=== PATIENT | male | born 1950 | race Caucasian/White ===

== ENCOUNTER 2017-04-18 16:20 | Emergency (ER) | payer MEDICARE, OTHER ==
[2017-04-18] MEDS ORDERED: Sodium Chloride 0.9% 10 ML Syringe FLUSH PRN (16:37)
[2017-04-18] MEDS ORDERED: Lactated Ringers 1,000 ML IV ONE (16:38)
[2017-04-18 17:07] LABS: CHLORIDE,CL 105 mmol/L (98-107); SODIUM,NA 140 mmol/L (136-145)
--- NOTE | 2017-04-18 19:00 | EDM.PDOC ---
ED HPI GENERAL MEDICAL PROBLEM - General Chief Complaint: Gastrointestinal Problem Stated Complaint: URINATION/CONSTIPATION ISSUES Time Seen by Provider: 04/18/17 16:21 Source of Information: Reports: Patient, Family, RN, RN Notes Reviewed History Limitations: Reports: No Limitations - History of Present Illness INITIAL COMMENTS - FREE TEXT/NARRATIVE: Patient presents to the ED at [facility] complaining of lower abdominal pain and pelvic pressure. The patient states that his symptoms have been occurring the last 3-4 days. The patient has been taking MiraLAX and milk of magnesia without any relief at home. The patient states that he is unable to fully void and feels like he is retaining urine. The patient denies any fevers or chills. The patient denies any nausea vomiting or diarrhea. The appetite has been good. The patient states he has been not drinking very much water. Otherwise no other concerns. Onset: Gradual Onset Date: 04/08/17 - Related Data Allergies Allergy/AdvReac Type Severity Reaction Status Date / Time codeine Allergy Tachycardia Verified 04/18/17 16:45 Home Meds: Home Meds Celecoxib [Celebrex] 04/11/13 [History] FLUoxetine HCl [Fluoxetine HCl] 04/11/13 [History] Fluticasone/Salmeterol [Advair 500-50 Diskus] 04/11/13 [History] Omeprazole [Omeprazole] 04/11/13 [History] Simvastatin [Simvastatin] 04/11/13 [History] Tamsulosin HCl [Tamsulosin HCl] 04/11/13 [History] Past Medical History Cardiovascular History: Reports: High Cholesterol Social & Family History - Tobacco Use Smoking Status *Q: Unknown Ever Smoked Second Hand Smoke Exposure: No - Alcohol Use Days Per Week of Alcohol Use: 0 - Recreational Drug Use Recreational Drug Use: No ED ROS GENERAL - Review of Systems Review Of Systems: See Below Constitutional: Denies: Fever, Chills, Weakness Respiratory: Denies: Shortness of Breath, Cough Cardiovascular: Denies: Chest Pain, Palpitations GI/Abdominal: Reports: Abdominal Pain. Denies: Diarrhea, Nausea, Vomiting : Reports: Urinary Retention. Denies: Discharge, Dysuria, Flank Pain Skin: Reports: No Symptoms Neurological: Reports: No Symptoms ED EXAM, GI/ABD - Physical Exam Exam: See Below Exam Limited By: No Limitations General Appearance: Alert, No Apparent Distress Respiratory/Chest: No Respiratory Distress, Lungs Clear, Normal Breath Sounds Cardiovascular: Normal Peripheral Pulses, Regular Rate, Rhythm GI/Abdominal Exam: Normal Bowel Sounds, Soft, Tender (lower abdominal) Neurological: Alert, Oriented Skin Exam: Warm, Dry, Intact, Normal Color, No Rash Course - Vital Signs Last Recorded V/S: Last Vital Signs Temp 36.5 C 04/18/17 16:25 Pulse 69 04/18/17 16:25 Resp 18 04/18/17 16:25 BP 133/75 04/18/17 16:25 Pulse Ox 94 L 04/18/17 16:25 - Orders/Labs/Meds Orders: Active Orders 24 hr Category Date Time Status Abdomen 2V AP Flat Upright [CR] Stat Exams 04/18/17 17:23 Taken PSA-EIA [REF] Stat Lab 04/18/17 16:45 Received Sodium Chloride 0.9% [Saline Flush] Med 04/18/17 16:37 Active 10 ml FLUSH ASDIRECTED PRN Peripheral IV Insertion Adult [OM.PC] Routine Oth 04/18/17 16:37 Ordered Medication Orders Sodium Chloride (Saline Flush) 10 ml FLUSH ASDIRECTED PRN PRN Reason: Keep Vein Open Labs: Laboratory Tests 04/18/17 04/18/17 04/18/17 Range/Units 16:45 16:45 17:10 WBC 5.7 (4.0-10.0) x10^3/uL RBC 4.70 (4.5-6.0) x10^6/uL Hgb 15.1 D (14.0-18.0) g/dL Hct 42.9 (40.0-52.0) % MCV 91.3 D (78.0-93.0) fL MCH 32.1 H (26.0-32.0) pg MCHC 35.2 (32.0-36.0) g/dL RDW Coeff of Mary 13.1 (10.0-15.0) % Plt Count 177 (130-400) x10^3/uL Neut % (Auto) 66.0 (50.0-80.0) % Lymph % (Auto) 22.5 L (25.0-50.0) % Esmeralda % (Auto) 9.0 (2.0-11.0) % Eos % (Auto) 2.3 (0.0-4.0) % Baso % (Auto) 0.2 (0.2-1.2) % Sodium 140 (136-145) mmol/L Potassium 3.8 (3.5-5.1) mmol/L Chloride 105 (98-107) mmol/L Carbon Dioxide 24 (21-32) mmol/L BUN 17 (7-18) mg/dL Creatinine 1.2 (0.70-1.30) mg/dL Est Cr Clr Drug Dosing TNP Estimated GFR (MDRD) > 60 Glucose 116 H (74-106) mg/dL Calcium 8.3 L (8.5-10.1) mg/dL Urine Color Yellow (YELLOW) Urine Appearance Cloudy H (CLEAR) Urine pH 7.5 (5.0-8.0) Ur Specific Lykens 1.015 Urine Protein Negative (NEGATIVE) mg/dL Urine Glucose (UA) Negative (NEGATIVE) mg/dL Urine Ketones Negative (NEGATIVE) mg/dL Urine Occult Blood Negative (NEGATIVE) Urine Nitrite Negative (NEGATIVE) Urine Bilirubin Negative (NEGATIVE) Urine Urobilinogen 0.2 (0.2) EU/dL Ur Leukocyte Esterase Negative (NEGATIVE) Urine RBC 0-5 (NOT SEEN) /HPF Urine WBC 0-5 (NOT SEEN) /HPF Ur Squamous Epith Cells Not seen (NEGATIVE) /HPF Amorphous Sediment Many Urine Bacteria Few H (NEGATIVE) /HPF Urine Mucus Not seen (NEGATIVE) /LPF Meds: Medications Generic Name Dose Route Start Last Admin Trade Name Freq PRN Reason Stop Dose Admin Sodium Chloride 10 ml 04/18/17 16:37 Saline Flush FLUSH ASDIRECTED PRN Keep Vein Open Discontinued Medications Generic Name Dose Route Start Last Admin Trade Name Freq PRN Reason Stop Dose Admin Lactated Ringer's 1,000 mls @ 999 mls/hr 04/18/17 16:38 04/18/17 17:26 Ringers, Lactated IV 04/18/17 17:38 999 mls/hr ONETIME ONE Administration - Radiology Interpretation Free Text/Narrative:: Abd flat plate and Upright 2V: No acute findings in the abdomen; large colonic stool burden - see scanned report in EMR Departure - Departure Time of Disposition: 18:58 Disposition: Home, Self-Care 01 Condition: Good Clinical Impression: Constipation Qualifiers: Constipation type: unspecified constipation type Qualified Code(s): K59.00 - Constipation, unspecified - Discharge Information Instructions: Constipation, Adult, [id number] Referrals: PCP,Not In Area [Primary Care Provider] - Additional Instructions: 1. Stay well hydrated and rest 2. Drink LOTS of water 3. Continue taking MiraLax and MOM daily until having BM's daily 4. May try a stool softener 5. See your Primary as symptoms warrant 6. Call with any questions/concerns - Problem List Review Problem List Initiated/Reviewed/Updated: Yes - My Orders Last 24 Hours: My Active Orders 04/18/17 16:37 Sodium Chloride 0.9% [Saline Flush] 10 ml FLUSH ASDIRECTED PRN Peripheral IV Insertion Adult [OM.PC] Routine 04/18/17 16:45 PSA-EIA [REF] Stat 04/18/17 17:23 Abdomen 2V AP Flat Upright [CR] Stat - Assessment/Plan Last 24 Hours: My Active Orders 04/18/17 16:37 Sodium Chloride 0.9% [Saline Flush] 10 ml FLUSH ASDIRECTED PRN Peripheral IV Insertion Adult [OM.PC] Routine 04/18/17 16:45 PSA-EIA [REF] Stat 04/18/17 17:23 Abdomen 2V AP Flat Upright [CR] Stat
--- NOTE | 2017-04-20 16:40 | PCM.SN ---
- Free Text/Narrative Note: Patient called to relay elevated PSA level that came back today. Message left for him to call the ER.
--- NOTE | 2017-04-23 08:41 | LETTER ---
04/21/2017 RE: ARASH LASHAY DIAZ : 1950 Dear Mr. Diaz: When you were seen in the emergency room on 04/18/2017 by RANJIT Combs, he ordered a prostate specific antigen (PSA test) which is elevated at 8.4. There are numerous potential causes for elevated PSA. This is not an emergency but you should contact your primary care provider and follow up in the clinic for this. If you have any questions, please contact the emergency room at . Sincerely,
== END 2017-04-18 19:06 | disposition home or self-care (01) ==
LOC: VM.ED 16:20
DX: K59.00 Constipation, unspecified (principal); E78.00 Pure hypercholesterolemia, unspecified; Z88.5 Allergy status to narcotic agent
CPT/HCPCS: 36415; 74019; 80048; 81001; 84153; 85025; 96360; 99283; 99284; J7120

== ENCOUNTER 2019-10-07 11:42 | Emergency (ER) | payer MEDICARE, OTHER ==
--- NOTE | 2019-10-07 12:16 | EDM.PDOC ---
ED HPI GENERAL MEDICAL PROBLEM - General Stated Complaint: DIZZY SOB Time Seen by Provider: 10/07/19 11:50 Source of Information: Reports: Patient History Limitations: Reports: No Limitations - History of Present Illness INITIAL COMMENTS - FREE TEXT/NARRATIVE: Patient comes into the emergency department with complaints of dizziness. Patient states that he has had intermittent dizziness for approximately 2 weeks now. Patient did have a medication increase ropinirol in the clinic setting he had noticed shortly after that that he has become dizzy and light headed after excess amount of exercise or work outdoors. He is also noticed that with increased amount of heat he becomes lightheaded and dizzy easier. Patient states that he is not an avid water drinker as well and states that he may have 1 to 2 glasses of water during the day. He is noted to be outside for greater than 8 to 10 hours a day in the heat has been 80 to 90s the last 2 weeks. Patient states that he has had his take his blood pressure on a couple occurrences when he is dizzy and lightheaded and is noted to be systolically in the 80s. If he sits for a few minutes and takes a few sips of water his then re-takes the blood pressure and it is noted to be back up in the 100 systolically. Patient denies any active chest pain, shortness of breath, dizziness, lightheadedness, blurred vision, headache, GI upset, peripheral edema, or loss of bowel or bladder. States that he has not passed out or fallen due to these episodes he ends up finding a location and sitting down until the dizziness dissipates. He states that the episodes only last a few minutes if he goes and sits down right away. Currently he is experiencing no concerns or complaints. During these episodes the patient denies having any chest pain or breath. Onset: Gradual Quality: Reports: Other Severity: Mild Improves with: Reports: Other (sitting down, getting out of the heat, drinking water) Worsens with: Reports: None Associated Symptoms: Reports: No Other Symptoms - Related Data Allergies Allergy/AdvReac Type Severity Reaction Status Date / Time codeine Allergy Tachycardia Verified 04/18/17 16:45 Home Meds: Home Meds Celecoxib [Celebrex] 04/11/13 [History] FLUoxetine HCl [Fluoxetine HCl] 04/11/13 [History] Fluticasone Propion/Salmeterol [Advair 500-50 Diskus] 04/11/13 [History] Omeprazole 04/11/13 [History] Simvastatin 04/11/13 [History] Tamsulosin HCl 04/11/13 [History] Past Medical History Cardiovascular History: Reports: High Cholesterol ED ROS GENERAL - Review of Systems Review Of Systems: See Below Constitutional: Reports: No Symptoms HEENT: Reports: No Symptoms Respiratory: Reports: No Symptoms Cardiovascular: Reports: No Symptoms Endocrine: Reports: No Symptoms GI/Abdominal: Reports: No Symptoms : Reports: No Symptoms Musculoskeletal: Reports: No Symptoms Skin: Reports: No Symptoms Neurological: Reports: No Symptoms Psychiatric: Reports: No Symptoms Hematologic/Lymphatic: Reports: No Symptoms Immunologic: Reports: No Symptoms ED EXAM, GENERAL - Physical Exam Exam: See Below Exam Limited By: No Limitations General Appearance: Alert, WD/WN, No Apparent Distress Head: Atraumatic, Other Neck: Normal Inspection, Supple, Non-Tender, Full Range of Motion Respiratory/Chest: No Respiratory Distress, Lungs Clear, Normal Breath Sounds, No Accessory Muscle Use, Chest Non-Tender Cardiovascular: Normal Peripheral Pulses, Regular Rate, Rhythm, No Edema, No JVD GI/Abdominal: Normal Bowel Sounds, Soft, Non-Tender, No Distention Back Exam: Normal Inspection, Full Range of Motion Extremities: Normal Inspection, Normal Range of Motion, Non-Tender, No Pedal Edema, Normal Capillary Refill Neurological: Alert, Oriented, CN II-XII Intact, Normal Gait Psychiatric: Normal Affect, Normal Mood Skin Exam: Warm, Dry, Normal Color, No Rash Course - Orders/Labs/Meds Orders: Active Orders 24 hr Category Date Time Status EKG Documentation Completion [RC] STAT Care 10/07/19 12:06 Active Chest 1V Frontal [CR] Stat Exams 10/07/19 12:06 Ordered Labs: Laboratory Tests 10/07/19 10/07/19 Range/Units 12:15 12:15 WBC 5.6 (4.0-10.0) x10^3/uL RBC 4.34 L (4.5-6.0) x10^6/uL Hgb 14.0 (14.0-18.0) g/dL Hct 40.8 (40.0-52.0) % MCV 94.0 H (78.0-93.0) fL MCH 32.3 H (26.0-32.0) pg MCHC 34.3 (32.0-36.0) g/dL RDW Coeff of Mary 13.2 (10.0-15.0) % Plt Count 141 (130-400) x10^3/uL Neut % (Auto) 69.2 (50.0-80.0) % Lymph % (Auto) 15.5 L (25.0-50.0) % Larue % (Auto) 12.6 H (2.0-11.0) % Eos % (Auto) 2.3 (0.0-4.0) % Baso % (Auto) 0.4 (0.2-1.2) % Sodium 139 (136-145) mmol/L Potassium 4.5 (3.5-5.1) mmol/L Chloride 106 (98-107) mmol/L Carbon Dioxide 24 (21-32) mmol/L Anion Gap 13.5 (10-20) mmol/L BUN 24 H (7-18) mg/dL Creatinine 1.2 (0.70-1.30) mg/dL Est Cr Clr Drug Dosing TNP Estimated GFR (MDRD) 60 Glucose 100 (74-106) mg/dL Calcium 8.4 L (8.5-10.1) mg/dL Corrected Calcium 8.88 (8.5-10.1) mg/dL Total Bilirubin 0.5 (0.2-1.0) mg/dL AST 13 L (15-37) U/L ALT 13 L (16-63) U/L Alkaline Phosphatase 59 (46-116) U/L Troponin I < 0.017 (<=0.056) ng/mL NT-Pro-B Natriuret Pep 306 H (<=125) pg/mL Total Protein 6.5 (6.4-8.2) g/dL Albumin 3.4 (3.4-5.0) g/dL Globulin 3.1 Albumin/Globulin Ratio 1.10 Departure - Departure Time of Disposition: 13:32 Disposition: Home, Self-Care 01 Condition: Good Clinical Impression: Orthostatic hypotension after exercise, Orthostatic hypotension, Lightheadedness - Discharge Information *PRESCRIPTION DRUG MONITORING PROGRAM REVIEWED*: Not Applicable *COPY OF PRESCRIPTION DRUG MONITORING REPORT IN PATIENT JANIYA: Not Applicable Instructions: Orthostatic Hypotension, Near-Syncope, [id number], Dizziness, [id number] Additional Instructions: . rest 2. increase your water intake 3. Continue all at home medications 4. Activity and diet as tolerated 5. Can take over the counter Tylenol or ibuprofen for any pain or discomfort 6. Follow up with PCP if symptoms continue, return, or progress 7. Call with any questions or concerns - My Orders Last 24 Hours: My Active Orders 10/07/19 12:06 EKG Documentation Completion [RC] STAT Chest 1V Frontal [CR] Stat - Assessment/Plan Last 24 Hours: My Active Orders 10/07/19 12:06 EKG Documentation Completion [RC] STAT Chest 1V Frontal [CR] Stat Assessment:: 1. dizzy Plan: 1. Labs completed in the ER. Results reviewed with the patient 2. EKG was completed in ER. Results reviewed with the patient 3. Patient and nursing staff was updated regarding the plan of care 4. Education provided the patient regarding activity, diet, rest, [id number] medication modalities, and follow-up care was provided 5. Patient and family are agreeable to the above plan of care 6. All questions and concerns were addressed with the patient and family prior to discharge
[2019-10-07 12:48] LABS: CHLORIDE,CL 106 mmol/L (98-107); SODIUM,NA 139 mmol/L (136-145)
[2019-10-07 12:49] LABS: ANION GAP 13.5 mmol/L (10-20)
== END 2019-10-07 13:30 | disposition home or self-care (01) ==
LOC: VM.ED 11:42
DX: I95.1 Orthostatic hypotension (principal); E78.00 Pure hypercholesterolemia, unspecified; Z88.5 Allergy status to narcotic agent
CPT/HCPCS: 36415; 80053; 83880; 84484; 85025; 99284-25; 99284-GF

== ENCOUNTER 2023-03-11 12:13 | Day surgery (SDC) | payer MEDICARE, OTHER ==
[2023-03-11] MEDS: Lactated Ringers 1,000 ML IV SCH (12:44)
[2023-03-11] MEDS ORDERED: Propofol 200 MG/20 ML SDV ONE (13:36)
[2023-03-11] MEDS ORDERED: Midazolam 1 MG/ML 2 ML SDV ONE (13:37)
[2023-03-11] MEDS ORDERED: fentaNYL 100 MCG/2 ML SDV ONE (13:37)
[2023-03-11] MEDS ORDERED: Lidocaine 4% 5 ML Amp ONE (13:38)
== END 2023-03-11 15:13 | disposition home or self-care (01) ==
LOC: VM.SDS 12:13
PROVIDERS: ATTEND Family Medicine
DX: K29.50 Unspecified chronic gastritis without bleeding (principal); K29.60 Other gastritis without bleeding; K22.70 Barrett's esophagus without dysplasia; K44.9 Diaphragmatic hernia without obstruction or gangrene; G20.A1 Parkinson's disease without dyskinesia, without mention of fluctuations; F33.1 Major depressive disorder, recurrent, moderate; I48.0 Paroxysmal atrial fibrillation; I25.10 Atherosclerotic heart disease of native coronary artery without angina pectoris; I95.1 Orthostatic hypotension; Z79.82 Long term (current) use of aspirin; Z79.899 Other long term (current) drug therapy; Z88.5 Allergy status to narcotic agent
CPT/HCPCS: 00731; 88305; 88342; J2250; J2704; J3010; J3490; J7120

== ENCOUNTER 2024-02-03 11:47 | Day surgery (SDC) | payer MEDICARE, OTHER ==
[2024-02-03] MEDS: Lactated Ringers 1,000 ML IV SCH (12:00)
[2024-02-03] MEDS ORDERED: Propofol 200 MG/20 ML SDV ONE (12:52)
[2024-02-03] MEDS ORDERED: fentaNYL 100 MCG/2 ML SDV ONE (12:52)
[2024-02-03 13:56] VITALS: BP 112/72; PULSE 72
== END 2024-02-03 14:25 | disposition home or self-care (01) ==
LOC: VM.SDS 11:47
PROVIDERS: ATTEND Family Medicine
DX: R10.9 Unspecified abdominal pain (principal); K22.70 Barrett's esophagus without dysplasia; F33.1 Major depressive disorder, recurrent, moderate; E78.2 Mixed hyperlipidemia; I49.5 Sick sinus syndrome; I10 Essential (primary) hypertension; I25.10 Atherosclerotic heart disease of native coronary artery without angina pectoris; K21.9 Gastro-esophageal reflux disease without esophagitis; J44.9 Chronic obstructive pulmonary disease, unspecified; G20.A1 Parkinson's disease without dyskinesia, without mention of fluctuations
CPT/HCPCS: 00731; 88305; 88342; 99100; J2704; J3010; J7120

== ENCOUNTER 2024-05-29 09:35 | Emergency (ER) | payer MEDICARE, OTHER ==
[2024-05-29 10:59] LABS: BASOPHILS PERCENT AUTO 0.2 % (0.2-1.2); EOSINOPHILS ABSOLUTE AUTO 0.1 x10^3/uL (0.0-0.5); EOSINOPHILS PERCENT AUTO 2.2 % (0.0-4.0); HEMATOCRIT 42.2 % (40.0-52.0); HEMOGLOBIN 14.8 g/dL (14.0-18.0); LYMPHOCYTES ABSOLUTE AUTO 1.6 x10^3/uL (1.0-4.8); LYMPHOCYTES PERCENT AUTO 29.5 % (25.0-50.0); MEAN CORPUSCULAR HEMOGLOBIN 32.2 pg (26.0-32.0); MEAN CORPUSCULAR HGB CONC 35.1 g/dL (32.0-36.0); MEAN CORPUSCULAR VOLUME 91.7 fL (78.0-93.0); MONOCYTES ABSOLUTE AUTO 0.7 x10^3/uL (0.0-0.8); MONOCYTES PERCENT AUTO 12.1 % (2.0-11.0); NEUTROPHILS ABSOLUTE AUTO 3.1 x10^3/uL (1.8-7.7); PLATELET COUNT,PLT 186 x10^3/uL (130-400); WHITE BLOOD CELL COUNT,WBC 5.5 x10^3/uL (4.0-10.0)
[2024-05-29 11:38] LABS: A/G RATIO 1.09; ALANINE AMINOTRANSFERASE,ALT 16 U/L (16-63); ALBUMIN 3.7 g/dL (3.4-5.0); ALKALINE PHOSPHATASE 60 U/L (46-116); ASPARTATE AMNIOTRANSFERASE,AST 18 U/L (15-37); BILIRUBIN TOTAL 0.6 mg/dL (0.2-1.0); BLOOD UREA NITROGEN,BUN 14 mg/dL (7-18); CALCIUM 9.1 mg/dL (8.5-10.1); CARBON DIOXIDE,CO2 28 mmol/L (21-32); CHLORIDE,CL 102 mmol/L (98-107); CREATININE 0.9 mg/dL (0.70-1.30); GLUCOSE RANDOM 107 mg/dL (70-99); MAGNESIUM 2.1 mg/dL (1.8-2.4); POTASSIUM,K 4.5 mmol/L (3.5-5.1); PRO B-TYPE NATRIUR PEPT,BNPPRO 38 pg/mL (<=450); PROTEIN TOTAL,TP 7.1 g/dL (6.4-8.2); SODIUM,NA 138 mmol/L (136-145)
[2024-05-29 11:40] LABS: ANION GAP 12.5 mmol/L (5-15); ESTIMATED GFR 89 mL/min (>=60)
== END 2024-05-29 12:20 | disposition home or self-care (01) ==
LOC: VM.ED 09:35
DX: R07.2 Precordial pain (principal); I10 Essential (primary) hypertension; E78.00 Pure hypercholesterolemia, unspecified; I48.91 Unspecified atrial fibrillation; J44.9 Chronic obstructive pulmonary disease, unspecified; K21.9 Gastro-esophageal reflux disease without esophagitis; Z95.0 Presence of cardiac pacemaker; Z79.899 Other long term (current) drug therapy; Z79.01 Long term (current) use of anticoagulants; Z88.5 Allergy status to narcotic agent; Z79.1 Long term (current) use of non-steroidal anti-inflammatories (NSAID)
CPT/HCPCS: 71045; 80053; 83735; 83880; 84484; 85025; 93005; 93010; 99284; 99285